=== PATIENT | female | born 1990 | race African-American/Black ===

== ENCOUNTER 2017-06-11 21:52 | Emergency (ER) | payer SELFPAY | END 2017-06-11 22:00 | disposition left against medical advice (07) | LOC: ER 21:52 | DX: T16.2XXA Foreign body in left ear, initial encounter (principal); Z53.21 Procedure and treatment not carried out due to patient leaving prior to being seen by health care provider; X58.XXXA Exposure to other specified factors, initial encounter; Y93.89 Activity, other specified; Y92.89 Other specified places as the place of occurrence of the external cause; Y99.8 Other external cause status ==

== ENCOUNTER 2017-09-11 11:13 | Emergency (ER) | payer SELFPAY | END 2017-09-11 11:22 | disposition left against medical advice (07) | LOC: ER 11:22 | DX: R10.9 Unspecified abdominal pain (principal); Z53.21 Procedure and treatment not carried out due to patient leaving prior to being seen by health care provider ==

== ENCOUNTER 2017-09-12 00:47 | Emergency (ER) | payer SELFPAY, MEDICAID ==
[2017-09-12] MEDS: MORPHINE SULFATE 10 MG/ML VIAL. IM (01:52)
[2017-09-12] MEDS: AMOXICILLIN/K CLAV 875/125MG TABLET. PO (02:19)
== END 2017-09-12 02:28 | disposition home or self-care (01) ==
LOC: ER 00:47
DX: H92.01 Otalgia, right ear (principal); Z88.5 Allergy status to narcotic agent
CPT/HCPCS: 96372; 99283; J2270